=== PATIENT | female | born 1995 | race Caucasian/White ===

== ENCOUNTER 2021-12-13 08:58 | Emergency (ER) | payer BC, OTHER, SELFPAY ==
[2021-12-13 09:08] VITALS: BP 136/84; PULSE 89; RESP 14; TEMP 36.8; O2SAT 98; BMI 21.4
--- NOTE | 2021-12-13 10:18 | ED.UPPEXIN ---
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 Patient states this happened this morning she states up. She states up-to-date on her tetanus denies any other injuries. Patient states it is painful. She is tried Tylenol and ibuprofen without any. Patient states that she had her nails done so she has taken nails adjacent but not at that spot. Related Data Previous Rx's Medication Instructions Recorded cephalexin 500 mg capsule 500 mg PO Q6H 7 days #28 caps 12/13/21 hydrocodone 5 mg-acetaminophen 325 1 tab PO Q6H PRN pain #14 tabs 12/13/21 mg tablet Allergies Allergy/AdvReac Type Severity Reaction Status Date / Time Sulfa (Sulfonamide Allergy Verified 12/13/21 09:12 Antibiotics) Review of Systems Review of Systems ROS Unobtainable: All systems reviewed & are unremarkable except as noted in HPI and below Patient History Social History Smoking Status: Unknown if ever smoked Smoking Status: Unknown if ever smoked alcohol intake frequency: holidays/special occasions only Substance Use Type: does not use Exam Narrative Exam Narrative: GENERAL: Alert and oriented x three, mild distress HEENT: Head normocephalic, atraumatic, EOMI, pupils reactive, face symmetric, moist mucous membranes NECK: Supple, full range of motion CARDIOVASCULAR: Regular rate and rhythm without murmurs, rubs or gallops. RESPIRATORY: Breath sounds equal bilaterally, no wheezes rales or rhonchi. EXTREMITIES: Normal range of motion, no clubbing or edema. Neurovascularly intact. Patient radial edge of the left thumb is exposed, the ulnar edge is in place. Patient is neurovascularly intact with no other lacerations of the skin. No bony tenderness. No erythema, warmth or discharge. NEUROLOGICAL: Cranial nerves II through XII grossly intact. Moving all extremities SKIN: Warm, dry, no petechiae, no rashes or lesions otherwise noted. Initial Vital Signs Initial Vital Signs: Vital Signs Temperature 98.3 F 12/13/21 09:08 Pulse Rate 89 12/13/21 09:08 Respiratory Rate 14 12/13/21 09:08 Blood Pressure 136/84 12/13/21 09:08 Pulse Oximetry 98 12/13/21 09:08 Oxygen Delivery Method 12/13/21 09:08 Procedures Laceration Repair Laceration 1: Site: hand (thumb left) Side (If applicable): left Size (cm): 1 Description: irregular and other (involves nail) Depth: simple, single layer Local Anesthetic: bupivacaine 0.5% Amount of anesthesia used (mL): 4 Pre-repair: wound explored and irrigated extensively Skin layer closed with: nylon (1 suture placed through nail and radial edge of skin to approximately nail bed in place. ) Nerve Block Nerve Block 1: Time of procedure: 11:02 Time out performed: Yes Local Anesthetic: bupivacaine 0.5% Amount of anesthesia used (mL): 4 Side: left Nerve Blocks: digital Procedure Successful: Yes (partially) Patient Tolerated Procedure: Well Complications: none Course Orders Ordered: Discontinued Medications Hydrocodone Bitart/Acetaminophen (Hydrocodone/Acet 5/325 Tablet) 2 tab PO NOW ONE Stop: 12/13/21 11:57 Last Admin: 12/13/21 12:04 Dose: 2 tab Documented By: SIDNEY Bupivacaine HCl (Bupivacaine 0.5% Mdv) 50 ml INJ INTRA-OP ONE Stop: 12/13/21 10:38 Last Admin: 12/13/21 10:53 Dose: 50 ml Documented By: MITCHELL Vital Signs Vital signs: Vital Signs - 8 hr 12/13/21 13:36 Pulse Rate 74 Respiratory Rate 20 Blood Pressure 124/75 Pulse Oximetry 99 Oxygen Delivery Method Room Air MDM - Extremity Injury (Upper) MDM Narrative Medical decision making narrative: This is a 26-year-old female comes emergency department with complaint of left thumb nail being pulled or ripped out. Patient radial edge on her left thumbnail been from the edge is placed on the ulnar side. Digital block was obtained which had good numbing on the ulnar side but not the radial localized with Lied 0, oral pain medication and ice. Patient had nail replaced, suture placed to help maintain approximation, patient oral antibiotic, blunt and plan for follow-up in a week for suture removal and time to allow the area to heal and hopefully nail to regrow. Discharge Plan Departure Patient Disposition: Home Clinical Impression: Avulsion of nail of left thumb Instructions: DI for Nail Avulsion Injury Activity Restrictions/Additional Instructions: Take antibiotics until completely gone. You may take pain medication 1-2 tablets every 6-8 hours as needed for pain. This medication can make you sleepy do not drive, perform hazardous activities or make any major decisions while taking it. This medication will make you constipated please take a stool softener once to twice daily until stools are soft and regular. Prescription sent to [facility]. Wear splint until area is healed. Wound Care: Keep wound(s) clean and dry. Wash daily with soap and water only. Do not use over the counter products (alcohol or peroxide)on the wounds unless instructed by a physician. If wound condition worsens (increased/expanding redness, developing fluid blisters, or worsening pain), either contact your doctor for an urgent re-assessment , or return to the Emergency Department. Return to the Emergency Department for any new or worsening symptoms. Return to the ED, urgent care, or vist a primary care doctor for removal sutures in 7-10 days. You can see if the nail salon can shorten your nail/cut it but I would leave the nail in place Return if fever greater than 100.4 Fahrenheit, increased swelling, increasing pain or worsening symptoms such as increased discharge or spreading redness. Prescriptions: New cephalexin 500 mg capsule 500 mg PO Q6H 7 Days Qty: 28 0RF hydrocodone-acetaminophen 5-325 mg tablet 1 tab PO Q6H PRN (Reason: pain) Qty: 14 0RF Visit Report Forms: Patient Portal/API
[2021-12-13] MEDS: BUPIVACAINE 0.5% MDV 50 ML INJ (10:53)
[2021-12-13] MEDS: HYDROCODONE/ACET 5/325 TABLET 2 TAB PO (12:04)
[2021-12-13 13:36] VITALS: BP 124/75; PULSE 74; RESP 20; O2SAT 99
== END 2021-12-13 13:37 | disposition home or self-care (01) ==
PROVIDERS: Emergency Provider Emergency Medicine
DX: S61.102A Unspecified open wound of left thumb with damage to nail, initial encounter (principal); W18.30XA Fall on same level, unspecified, initial encounter
CPT/HCPCS: 12001; 29130; 64450; 99283